=== PATIENT | female | born 1990 | race African-American/Black ===

== ENCOUNTER 2016-08-17 20:25 | Emergency (ER) | payer OTHER ==
[2016-08-17] MEDS ORDERED: IBUPROFEN 800 MG TABLET PO ONE (21:03)
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
[2016-08-17 21:32] LABS: ABSOLUTE BASOPHILS # (AUTO) 0.1 10^3/uL (0.0-0.2); ABSOLUTE LYMPHOCYTES (AUTO) 1.9 10^3/uL (0.5-4.7); ABSOLUTE MONOCYTES (AUTO) 0.4 10^3/uL (0.1-1.4); ABSOLUTE NEUT (AUTO) 2.7 10^3/uL (1.7-8.2); EOSINOPHILS % (AUTO) 0.9 % (0-6); HEMATOCRIT 42.4 % (36.0-47.0); HGB HCT DIFFERENCE -0.4; LYMPHOCYTES % (AUTO) 37.5 % (13-45); MEAN CORPUSCULAR HEMOGLOBIN 29.6 pg (27.0-33.4); MEAN CORPUSCULAR HGB CONC 32.9 g/dL (32.0-36.0); MEAN CORPUSCULAR VOLUME 90 fl (80-97); MONOCYTES % (AUTO) 8.5 % (3-13); RED BLOOD COUNT 4.73 10^6/uL (3.72-5.28); RED CELL DISTRIBUTION WIDTH 13.3 % (11.5-14.0); SEGMENTED NEUTROPHILS % (AUTO) 52.1 % (42-78); WHITE BLOOD COUNT 5.1 10^3/uL (4.0-10.5)
[2016-08-17 21:46] LABS: ALANINE AMINOTRANSFERASE 47 U/L (9-52); ALBUMIN 4.3 g/dL (3.5-5.0); ALKALINE PHOSPHATASE 47 U/L (38-126); ANION GAP 10 (5-19); ASPARTATE AMINO TRANSFERASE 26 U/L (14-36); BILIRUBIN,TOTAL 1.4 mg/dL (0.2-1.3); BLOOD UREA NITROGEN 13 mg/dL (7-20); CALCIUM 9.6 mg/dL (8.4-10.2); CARBON DIOXIDE 27 mmol/L (22-30); CHLORIDE 102 mmol/L (98-107); CREATININE RESULT 0.75 mg/dL (0.52-1.25); GLUCOSE 84 mg/dL (75-110); POTASSIUM 4.2 mmol/L (3.6-5.0); SODIUM 139.4 mmol/L (137-145); TOTAL PROTEIN 7.1 g/dL (6.3-8.2)
[2016-08-17 22:03] LABS: APPEARANCE,URINE CLEAR; BILIRUBIN,URINE NEGATIVE (NEGATIVE); GLUCOSE, URINE NEGATIVE (NEGATIVE); KETONES,URINE NEGATIVE (NEGATIVE); LEUKOCYTE ESTERASE,URINE SMALL (NEGATIVE); NITRITE,URINE NEGATIVE (NEGATIVE); PROTEIN,URINE NEGATIVE (NEGATIVE); URINE SPECIFIC GRAVITY 1.016; UROBILINOGEN,URINE NEGATIVE mg/dL (<2.0)
[2016-08-17 22:38] VITALS: BP 128/73
--- NOTE | 2016-08-18 08:26 | EKG REPORT ---
SEVERITY:- NORMAL ECG - SINUS RHYTHM : Confirmed by: Guicho Preciado 18-Aug-2016 08:25:48
== END 2016-08-17 22:40 | disposition home or self-care (01) ==
LOC: ER 20:25
DX: R20.9 Unspecified disturbances of skin sensation (principal); R03.0 Elevated blood-pressure reading, without diagnosis of hypertension; R42 Dizziness and giddiness; R51 Headache
CPT/HCPCS: 36415; 80053; 81001; 84703; 85025; 93005; 93010; 99284

== ENCOUNTER 2017-11-18 17:34 | Emergency (ER) | payer OTHER ==
[2017-11-18] MEDS ORDERED: METHYLPREDNISOLONE 4 MG TABLET PO ONE (19:38)
[2017-11-18] MEDS ORDERED: FAMOTIDINE 20 MG TABLET PO ONE (19:38)
--- NOTE | 2017-11-18 19:50 | ER Document Report ---
HPI - HPI Patient complains to provider of: Skin rash Onset/Duration: Persistent Pain Level: 1 Context: Patient states she recently used a hair chemical 2 weeks ago and had an allergic reaction. Patient states that she still has a rash to the ears and around her hairline. Patient states that she developed a rash to the circumoral area 2 days ago and states that this incidentally followed having oral sex with a female partner. Patient is concerned that she may have herpes. Patient states that she initially was seen after the allergic reaction and given a dose of prednisone. Patient states that she had worsening pruritus after taking the prednisone and so stopped the medication. Patient is concerned that she may be allergic to prednisone. Associated Symptoms: Other - Facial rash. denies: Fever Exacerbated by: Denies Relieved by: Denies Similar symptoms previously: No Recently seen / treated by doctor: Yes - ROS ROS below otherwise negative: Yes Systems Reviewed and Negative: Yes All other systems reviewed and negative - CONSTITUTIONAL Constitutional: DENIES: Fever - EENT EENT: DENIES: Sore Throat - NEURO Neurology: DENIES: Headache - RESPIRATORY Respiratory: DENIES: Coughing - GASTROINTESTINAL Gastrointestinal: DENIES: Nausea - DERM Skin Color: Normal Skin Problems: Rash Past Medical History - General Information source: Patient - Social History Smoking Status: Current Some Day Smoker Smoking Education Provided: Yes Frequency of alcohol use: Occasional Drug Abuse: None Occupation: none Lives with: Family Family History: Reviewed & Not Pertinent Patient has suicidal ideation: No Patient has homicidal ideation: No - Medical History Medical History: Negative Renal/ Medical History: Denies: Hx Peritoneal Dialysis Psychiatric Medical History: Reports: Hx Attention Deficit Hyperactivity Disorder Past Surgical History: Reports: Hx Breast Surgery - reduction Vertical Provider Document - CONSTITUTIONAL Agree With Documented VS: Yes Exam Limitations: No Limitations General Appearance: WD/WN, No Apparent Distress - INFECTION CONTROL TRAVEL OUTSIDE OF THE [place] IN LAST 30 DAYS: No - HEENT HEENT: Atraumatic, Normal ENT Exam, Normocephalic - NECK Neck: Normal Inspection, Supple - RESPIRATORY Respiratory: Breath Sounds Normal, No Respiratory Distress - CARDIOVASCULAR Cardiovascular: Regular Rate, Regular Rhythm - MUSCULOSKELETAL/EXTREMETIES Musculoskeletal/Extremeties: MAEW - NEURO Level of Consciousness: Awake, Alert, Appropriate Motor/Sensory: No Motor Deficit - DERM Integumentary: Warm, Dry, Rash - Dry flaking skin circumorally, to bilateral upper eyelids and around hairline Course - Re-evaluation Re-evalutation: 11/18/17 19:[address] Wolf regarding patient presentation and her reported history of a reaction to taking prednisone, recommends giving Depo-Medrol observing patient and as long she does not have any allergic reaction discharging home with the steroid. States pt may be discharged without observation period if she chooses. 11/18/17 20:01 pt advised that we may have to wait to receive the medication from the nursing hearing aid assembly supervisor as we currently do not have this particular medication here in the emergency department. Patient prefers to get the prescription filled and take at home. Patient states that she will return if she has any adverse symptoms or signs of allergic reaction. 11/18/17 20:05 - Vital Signs Vital signs: Temp Pulse Resp BP Pulse Ox 98.1 F 73 18 141/83 H 100 11/18/17 17:41 11/18/17 17:41 11/18/17 17:41 11/18/17 17:41 11/18/17 17:41 Discharge - Discharge Clinical Impression: Facial rash Condition: Stable Disposition: HOME, SELF-CARE Instructions: Contact Dermatitis ([facility]), Antihistamines ([facility]), Stock Preparation Supervisor, Steroid Medication Additional Instructions: Return immediately for any new or worsening symptoms Followup with your primary care provider, call tomorrow to make a followup appointment Prescriptions: Famotidine [Pepcid 20 mg Tablet] 20 mg PO BID #12 tablet Hydroxyzine HCl [Atarax 25 mg Tablet] 1 - 2 tab PO QID #16 tablet Methylprednisolone [Medrol Dosepack (4 mg/Tab) 21 Tab/Dosepak] 4 mg PO ASDIR PRN #21 tab.ds.pk PRN Reason: Forms: Smoking Cessation Education Referrals: MEGA NEGRON DO [ACTIVE STAFF] - Follow up as needed
[2017-11-18 20:10] VITALS: BP 122/79
== END 2017-11-18 20:10 | disposition home or self-care (01) ==
LOC: ER 17:34
DX: R21 Rash and other nonspecific skin eruption (principal); F17.200 Nicotine dependence, unspecified, uncomplicated
CPT/HCPCS: 99282

== ENCOUNTER 2017-11-23 23:25 | Emergency (ER) | payer OTHER ==
--- NOTE | 2017-11-23 23:53 | ER Document Report ---
ED GI/ - General Chief Complaint: Lower Abdominal Pain Stated Complaint: PELVIC PAIN Time Seen by Provider: 11/23/17 23:53 Mode of Arrival: Ambulatory Information source: Patient Notes: 27-year-old female is complaining of pelvic pain for a week with a vaginal discharge with an odor, urinary frequency. She does have some vaginal irritation. She had a new female sexual partner about 10 days ago sex toys were used intravaginal with oral sex. She also states that there is a male in another room and does not know if this female sex partner had sex with the male. She has a history of PID years ago that was treated. No fever or chills. Sex with male last month. G0. Menses late. TRAVEL OUTSIDE OF THE [place] IN LAST 30 DAYS: No - Related Data Allergies/Adverse Reactions: Sulfa (Sulfonamide Antibiotics) Allergy (Verified 11/18/17 17:36) Past Medical History - General Information source: Patient - Social History Smoking Status: Current Every Day Smoker Frequency of alcohol use: None Drug Abuse: None Lives with: Family Family History: Reviewed & Not Pertinent Renal/ Medical History: Denies: Hx Peritoneal Dialysis Psychiatric Medical History: Reports: Hx Attention Deficit Hyperactivity Disorder Past Surgical History: Reports: Hx Breast Surgery - reduction Review of Systems - Review of Systems Constitutional: No symptoms reported EENT: No symptoms reported Cardiovascular: No symptoms reported Respiratory: No symptoms reported Gastrointestinal: No symptoms reported Genitourinary: No symptoms reported Female Genitourinary: See HPI Musculoskeletal: No symptoms reported Skin: No symptoms reported Hematologic/Lymphatic: No symptoms reported Neurological/Psychological: No symptoms reported Physical Exam - Vital signs Vitals: Temp Pulse Resp BP Pulse Ox 98.1 F 70 16 125/71 99 11/23/17 23:40 11/23/17 23:40 11/23/17 23:40 11/23/17 23:40 11/23/17 23:40 Interpretation: Normal - General General appearance: Appears well, Alert In distress: None Notes: obese - HEENT Head: Normocephalic, Atraumatic Eyes: Normal Conjunctiva: Normal Pupils: PERRL Neck: Supple. No: Lymphadenopathy - Respiratory Respiratory status: No respiratory distress Chest status: Nontender Breath sounds: Normal Chest palpation: Normal - Cardiovascular Rhythm: Regular Heart sounds: Normal auscultation Murmur: No - Abdominal Inspection: Normal Distension: No distension Bowel sounds: Normal Tenderness: Tender - pelvis Organomegaly: No organomegaly - Genitourinary External exam: Normal Speculum exam: Cervix closed, Vaginal discharge. No: Lesions Bimanuel exam: Cervical motion tender - Yellow - Back Back: Normal, Nontender. No: CVA tenderness - Extremities General upper extremity: Normal inspection, Nontender, Normal color, Normal ROM , Normal temperature General lower extremity: Normal inspection, Nontender, Normal color, Normal ROM , Normal temperature, Normal weight bearing. No: Radha's sign - Neurological Neuro grossly intact: Yes Cognition: Normal Orientation: AAOx4 [place] Coma Scale Eye Opening: Spontaneous [place] Coma Scale Verbal: Oriented [place] Coma Scale Motor: Obeys Commands [place] Coma Scale Total: 15 Speech: Normal Motor strength normal: LUE, RUE, LLE, RLE Sensory: Normal - Psychological Associated symptoms: Normal affect, Normal mood - Skin Skin Temperature: Warm Skin Moisture: Dry Skin Color: Normal Course - Re-evaluation Re-evalutation: 11/24/17 00:54 Urinalysis shows 4 WBCs 1 RBC trace of bacteria, urine culture is pending. CBC is normal. Chemistry is normal except for mildly elevated total bilirubin of 1.5. Wet prep shows 4+ bacteria 4+ epithelials and 4+ white blood cells, suspect bacterial vaginosis because of the odor that the patient states she had it. No trichomonas. test is negative. She is concerned about the amount of pelvic pain so I am sending her for ultrasound because the pelvic pain is right worse than left. 11/24/17 01:13 Left ovary is normal, right ovary is partially obscured by bowel gas.. No acute findings on ultrasound. 11/24/17 02:07 - Vital Signs Vital signs: Temp Pulse Resp BP Pulse Ox 98.1 F 70 16 125/71 99 11/23/17 23:40 11/23/17 23:40 11/23/17 23:40 11/23/17 23:40 11/23/17 23:40 - Laboratory Result Diagrams: 11/24/17 00:17 11/24/17 00:17 Laboratory results interpreted by me: 11/24/17 11/24/17 00:17 00:17 Total Bilirubin 1.5 H Urine Urobilinogen 4.0 H Ur Leukocyte Esterase MODERATE H Discharge - Discharge Clinical Impression: Bacterial vaginosis, Pelvic pain Condition: Good Disposition: HOME, SELF-CARE Instructions: Pelvic Pain ([facility]), Vaginosis, Bacterial ([facility]), Metronidazole ([facility] ), Acetaminophen, Use of [id number]-Uwliscq Ibuprofen ([facility]), Rocephin ([facility]), Azithromycin ([facility]) Additional Instructions: call me in several hours for the std culture results to er if worse finish the flagyl no alcohol when you take that medication Prescriptions: Ibuprofen [Motrin 800 mg Tablet] 800 mg PO Q8HP PRN #30 tablet PRN Reason: Metronidazole [Flagyl 500 mg Tablet] 500 mg PO BID #14 tablet
[2017-11-24 00:27] LABS: ABSOLUTE BASOPHILS # (AUTO) 0.1 10^3/uL (0.0-0.2); ABSOLUTE LYMPHOCYTES (AUTO) 2.4 10^3/uL (0.5-4.7); ABSOLUTE MONOCYTES (AUTO) 0.7 10^3/uL (0.1-1.4); ABSOLUTE NEUT (AUTO) 4.3 10^3/uL (1.7-8.2); BASOPHILS % (AUTO) 1.1 % (0-2); EOSINOPHILS % (AUTO) 0.6 % (0-6); HEMATOCRIT 45.4 % (36.0-47.0); HEMOGLOBIN 15.4 g/dL (12.0-15.5); MEAN CORPUSCULAR HEMOGLOBIN 30.7 pg (27.0-33.4); MEAN CORPUSCULAR HGB CONC 33.8 g/dL (32.0-36.0); MEAN CORPUSCULAR VOLUME 91 fl (80-97); MONOCYTES % (AUTO) 8.8 % (3-13); PLATELET COUNT 209 10^3/uL (150-450); RED BLOOD COUNT 5.01 10^6/uL (3.72-5.28); RED CELL DISTRIBUTION WIDTH 13.2 % (11.5-14.0); SEGMENTED NEUTROPHILS % (AUTO) 57.5 % (42-78); TOTAL CELLS COUNTED % (AUTO) 100 %; WHITE BLOOD COUNT 7.4 10^3/uL (4.0-10.5)
[2017-11-24 00:40] LABS: APPEARANCE,URINE CLEAR; BILIRUBIN,URINE NEGATIVE (NEGATIVE); COLOR,URINE YELLOW; GLUCOSE, URINE NEGATIVE (NEGATIVE); KETONES,URINE NEGATIVE (NEGATIVE); LEUKOCYTE ESTERASE,URINE MODERATE (NEGATIVE); NITRITE,URINE NEGATIVE (NEGATIVE); PROTEIN,URINE NEGATIVE (NEGATIVE); URINE SPECIFIC GRAVITY 1.026
[2017-11-24 00:44] LABS: ALANINE AMINOTRANSFERASE 40 U/L (9-52); ALBUMIN 4.4 g/dL (3.5-5.0); ALKALINE PHOSPHATASE 61 U/L (38-126); ANION GAP 11 (5-19); ASPARTATE AMINO TRANSFERASE 19 U/L (14-36); BILIRUBIN,DIRECT 0.2 mg/dL (0.0-0.4); BILIRUBIN,TOTAL 1.5 mg/dL (0.2-1.3); BLOOD UREA NITROGEN 18 mg/dL (7-20); CALCIUM 9.7 mg/dL (8.4-10.2); CARBON DIOXIDE 29 mmol/L (22-30); CHLORIDE 101 mmol/L (98-107); GLUCOSE 85 mg/dL (75-110); POTASSIUM 4.4 mmol/L (3.6-5.0); SODIUM 141.4 mmol/L (137-145)
[2017-11-24 00:47] LABS: BACTERIA (WET MOUNT) 4+ BACTERIA SEEN; EPITHELIALS (WET MOUNT) 4+ EPITHELIALS SEEN; RBCS (WET MOUNT) RARE RBCS SEEN; T.VAGINALIS (WET MOUNT) NO TRICHOMONAS SEEN; WBCS (WET MOUNT) 4+ WBCS SEEN; YEAST (WET MOUNT) NO YEAST SEEN
[2017-11-24] MEDS ORDERED: CEFTRIAXONE INJ 250 MG VIAL IM ONE (01:05)
[2017-11-24] MEDS ORDERED: ONDANSETRON 4 MG TAB.RAPDIS PO ONE (01:05)
[2017-11-24] MEDS ORDERED: AZITHROMYCIN 250 MG TABLET PO ONE (01:05)
[2017-11-24] MEDS ORDERED: METRONIDAZOLE 500 MG TABLET PO ONE (01:07)
[2017-11-24] MEDS ORDERED: IBUPROFEN 800 MG TABLET PO ONE (01:13)
[2017-11-24] MEDS ORDERED: ACETAMINOPHEN 325 MG TABLET PO ONE (01:13)
--- NOTE | 2017-11-24 01:59 | RADIOLOGY REPORT (SQ) ---
EXAM DESCRIPTION: U/S OB TRANSVAG W/DOPPLER CLINICAL HISTORY: 27 years, Female, pelvic pain, r more l , not COMPARISON: None. LIMITATIONS: Partial bowel obscuration of the right ovarian fossa. FINDINGS: 7.7 cm uterus, 1.1 cm thick endometrial stripe, 2.5 cm cervical length, and 3.6 cm left ovary appear normal size, shape, echotexture, and vascularity. 3.5 cm right ovary partially visualized due to bowel artifact. No significant free fluid. IMPRESSION: Normal pelvic sonogram. Limitation.
[2017-11-24 02:10] VITALS: BP 126/76
[2017-11-24 02:11] LABS: CHLAM PCR NOT DETECTED (NOT DETECT); GON PCR NOT DETECTED (NOT DETECT)
== END 2017-11-24 02:10 | disposition home or self-care (01) ==
LOC: ER 23:25
DX: N76.0 Acute vaginitis (principal); B96.89 Other specified bacterial agents as the cause of diseases classified elsewhere; R10.2 Pelvic and perineal pain; R10.30 Lower abdominal pain, unspecified; R35.0 Frequency of micturition; F17.200 Nicotine dependence, unspecified, uncomplicated
CPT/HCPCS: 99284; 96372; 36415; 87086; 87210; 84703; 85025; 80053; 81001; 87491; 87591; 76817; 93976; S0119; J0696

== ENCOUNTER 2017-12-05 18:33 | Emergency (ER) | payer OTHER ==
--- NOTE | 2017-12-05 19:26 | ER Document Report ---
ED Medical Screen (RME) - General Chief Complaint: Pelvic Pain Stated Complaint: ABDOMINAL PAIN Time Seen by Provider: 12/05/17 19:02 Mode of Arrival: Ambulatory Information source: Patient Notes: 27-year-old female who has been seen by urgent care and her primary care physician for the past 2 days with complaints of left lower quadrant pain presents with continued pain. Patient unsure if she is , notes she passed something in the toilet today and the cramping is worsened since I have greeted and performed a rapid initial assessment of this patient. A comprehensive ED assessment and evaluation of the patient, analysis of test results and completion of the medical decision making process will be conducted by additional ED providers. PHYSICAL EXAMINATION: GENERAL: Well-appearing, well-nourished and in no acute distress. HEAD: Atraumatic, normocephalic. EYES: Pupils equal round extraocular movements intact, conjunctiva are normal. ENT: Nares patent NECK: Normal range of motion LUNGS: No respiratory distress Musculoskeletal: Normal range of motion NEUROLOGICAL: Normal speech, normal gait. PSYCH: Normal mood, normal affect. SKIN: Warm, Dry, normal turgor, no rashes or lesions noted. TRAVEL OUTSIDE OF THE [place] IN LAST 30 DAYS: No - Related Data Allergies/Adverse Reactions: Sulfa (Sulfonamide Antibiotics) Allergy (Verified 12/05/17 18:35) Past Medical History - General Last Menstrual Period: 09/04 - Social History Chew tobacco use (# tins/day): No Frequency of alcohol use: None Drug Abuse: None Renal/ Medical History: Denies: Hx Peritoneal Dialysis Psychiatric Medical History: Reports: Hx Attention Deficit Hyperactivity Disorder Past Surgical History: Reports: Hx Breast Surgery - reduction Physical Exam - Vital signs Vitals: Temp Pulse Resp BP Pulse Ox 98.2 F 68 18 135/81 H 100 12/05/17 18:40 12/05/17 18:40 12/05/17 18:40 12/05/17 18:40 12/05/17 18:40 Course - Vital Signs Vital signs: Temp Pulse Resp BP Pulse Ox 98.2 F 68 18 135/81 H 100 12/05/17 18:40 12/05/17 18:40 12/05/17 18:40 12/05/17 18:40 12/05/17 18:40
--- NOTE | 2017-12-05 20:24 | RADIOLOGY REPORT (SQ) ---
EXAM DESCRIPTION: U/S NON OB PEL TV W/DOPPLER COMPLETED DATE/TIME: 12/05/2017 8:09 pm REASON FOR STUDY: pelvic pain COMPARISON: 08/27/2015 TECHNIQUE: Dynamic and static grayscale images acquired of the pelvis via transvaginal approach and recorded on PACS. Additional selected color Doppler and spectral images recorded. LIMITATIONS: None. FINDINGS: UTERUS: Contour normal. No mass. ENDOMETRIAL STRIPE: No focal or generalized thickening. No masses. CERVIX: No nabothian cysts. RIGHT ADNEXUM: No abnormal masses. RIGHT OVARY AND DOPPLER: Normal size. No worrisome masses. Normal arterial vascular flow without leighton dence for torsion. LEFT ADNEXUM: No abnormal masses. LEFT OVARY AND DOPPLER: Normal size. No worrisome masses. Normal arterial vascular flow without evide nce for torsion. FREE FLUID: None noted. OTHER: No other significant finding. MEASUREMENTS: UTERUS: 7.5 X 4.5 X 4.1 CM. ENDOMETRIAL STRIPE: 8.8 MM. RIGHT OVARY: 3.8 X 3.2 X 3.1 CM. LEFT OVARY: 3.8 X 1.5 X 1.5 CM. IMPRESSION: NORMAL TRANSVAGINAL PELVIC ULTRASOUND. TECHNICAL DOCUMENTATION: JOB ID: [id number] [employer]- All Rights Reserved Reading location - IP/workstation name: [email or web address]
--- NOTE | 2017-12-05 20:24 | ER Document Report ---
ED General - General Mode of Arrival: Ambulatory Information source: Patient TRAVEL OUTSIDE OF THE [place] IN LAST 30 DAYS: No <LAY ORDONEZ - Last Filed: 12/05/17 22:56> <VICKY DICKENS - Last Filed: 12/06/17 01:32> - General Chief Complaint: Pelvic Pain Stated Complaint: ABDOMINAL PAIN Time Seen by Provider: 12/05/17 19:02 Notes: 27 y.o female with a PMHx of endometriosis presents to the ED with abd pain that has been consistent but states that she used the restroom and "passed some tissue" after urinating today. Pt states that her pain is always on her left side and denies any relief from Ibuprofen. Pt reports nausea and one episode of vomiting yesterday. She denies any pain to her back, fever, diarrhea or constipation. She denies straining when the tissue passed. She denies any concern for STDs or recent surgeries. Pt reports taking Phentermine regularly. Pt reports a Salpingiogram in the past. She reports going to the Urgent Care yesterday for her pain and was without any results. She denies seeing an OBGYN recently or ever having a Laparoscopy. Pt had a test and Ultrasound done on November 24 and was not . (LAY ORDONEZ) - Related Data Allergies/Adverse Reactions: Sulfa (Sulfonamide Antibiotics) Allergy (Verified 12/05/17 18:35) Past Medical History - General Information source: Patient Last Menstrual Period: 09/04 - Social History Smoking Status: Never Smoker Chew tobacco use (# tins/day): No Frequency of alcohol use: None Drug Abuse: None Family History: Reviewed & Not Pertinent Patient has suicidal ideation: No Patient has homicidal ideation: No Renal/ Medical History: Denies: Hx Peritoneal Dialysis Psychiatric Medical History: Reports: Hx Attention Deficit Hyperactivity Disorder Past Surgical History: Reports: Hx Breast Surgery - reduction <LAY ORDONEZ - Last Filed: 12/05/17 22:56> Review of Systems - Review of Systems Constitutional: See HPI, Fever EENT: No symptoms reported Cardiovascular: No symptoms reported Respiratory: No symptoms reported Gastrointestinal: See HPI, Abdominal pain - Prominently to her LT side, Nausea, Vomiting. denies: Diarrhea, Constipation Genitourinary: No symptoms reported Female Genitourinary: See HPI, Other - "passed tissue" Musculoskeletal: See HPI. denies: Back pain Skin: No symptoms reported Hematologic/Lymphatic: No symptoms reported Neurological/Psychological: No symptoms reported -: Yes All other systems reviewed and negative <LAY ORDONEZ - Last Filed: 12/05/17 22:56> Physical Exam <LAY ORDONEZ - Last Filed: 12/05/17 22:56> <VICKY DICKENS - Last Filed: 12/06/17 01:32> - Vital signs Vitals: Temp Pulse Resp BP Pulse Ox 98.2 F 68 18 135/81 H 100 12/05/17 18:40 12/05/17 18:40 12/05/17 18:40 12/05/17 18:40 12/05/17 18:40 - Notes Notes: PHYSICAL EXAM GENERAL: Alert, interacts well. Appears uncomfortable and frustrated. No acute distress. HEAD: Normocephalic, atraumatic. EYES: Pupils equal, round, and reactive to light. Extraocular movements intact. ENT: Oral mucosa moist, tongue midline. NECK: Full range of motion. Supple. Trachea midline. LUNGS: Clear to auscultation bilaterally, no wheezes, rales, or rhonchi. No respiratory distress. HEART: Regular rate and rhythm. No murmurs, gallops, or rubs. ABDOMEN: Soft. Non-distended. Bowel sounds present in all 4 quadrants. LT pelvis tenderenss to palpation. No guarding, rebound, or rigidity. EXTREMITIES: Moves all 4 extremities spontaneously. No edema, radial and dorsalis pedis pulses 2/4 bilaterally. No cyanosis. NEUROLOGICAL: Alert and oriented x3. Normal speech. PSYCH: Normal affect, normal mood. SKIN: Warm, dry, normal turgor. No rashes or lesions noted. (LAY ORDONEZ) Course - Laboratory Result Diagrams: 12/05/17 22:02 12/05/17 22:02 <LAY ORDONEZ - Last Filed: 12/05/17 22:56> - Laboratory Result Diagrams: 12/05/17 22:02 12/05/17 22:02 - Diagnostic Test Radiology reviewed: Reports reviewed <VICKY DICKENS - Last Filed: 04/28/18 01:32> - Re-evaluation Re-evalutation: Patient is a 27-year-old female who comes in with left lower pelvic pain. Patient has been seen by her primary care doctor in urgent care. No acute findings on transvaginal ultrasound with Doppler. Blood work and urine within normal limits. Patient is not . Patient denies any nausea vomiting diarrhea or any other abdominal pain. She was recently checked for STDs. Patient is requesting to be discharged home and is feeling better after Bentyl. She is instructed to follow-up with [facility]. Return if any worsening or concerning symptoms. Understands and agrees with this plan. Grateful for care. (VICKY DICKENS) - Vital Signs Vital signs: Temp Pulse Resp BP Pulse Ox 98.6 F 68 18 125/76 100 12/06/17 00:06 12/06/17 00:06 12/06/17 00:06 12/06/17 00:06 12/06/17 00:06 - Laboratory Laboratory results interpreted by me: 12/05/17 12/05/17 22:02 22:02 Seg Neutrophils % 39.0 L Lymphocytes % 51.0 H Total Bilirubin 2.1 H Discharge <LAY ORDONEZ - Last Filed: 12/05/17 22:56> <VICKY DICKENS - Last Filed: 12/06/17 01:32> - Discharge Clinical Impression: Pelvic pain Condition: Stable Disposition: HOME, SELF-CARE Instructions: Pelvic Pain ([facility]) Additional Instructions: Please follow-up with [facility] within the next few weeks. Please call for appointment. Prescriptions: Dicyclomine HCl [Bentyl 20 mg Tablet] 20 mg PO TIDP PRN #40 tablet PRN Reason: Referrals: [facility] [Provider Group] - Follow up as needed Scribe Attestation: 12/06/17 01:31 I personally performed the services described in the documentation, reviewed and edited the documentation which was dictated to the scribe in my presence, and it accurately records my words and actions. (VICKY DICKENS) Scribe Documentation - Scribe Written by Arcadio:: Arcadio Black [id number] 12/05/2017 acting as scribe for :: Rahul <LAY ORDONEZ - Last Filed: 12/05/17 22:56>
[2017-12-05] MEDS ORDERED: DICYCLOMINE HCL 20 MG TABLET PO ONE (21:18)
[2017-12-05 22:12] LABS: ABSOLUTE EOSINOPHILS # (AUTO) 0.1 10^3/uL (0.0-0.6); ABSOLUTE LYMPHOCYTES (AUTO) 2.7 10^3/uL (0.5-4.7); ABSOLUTE MONOCYTES (AUTO) 0.4 10^3/uL (0.1-1.4); BASOPHILS % (AUTO) 0.8 % (0-2); EOSINOPHILS % (AUTO) 1.6 % (0-6); HEMATOCRIT 40.7 % (36.0-47.0); MEAN CORPUSCULAR HGB CONC 34.3 g/dL (32.0-36.0); MEAN CORPUSCULAR VOLUME 90 fl (80-97); MONOCYTES % (AUTO) 7.6 % (3-13); PLATELET COUNT 166 10^3/uL (150-450); TOTAL CELLS COUNTED % (AUTO) 100 %; WHITE BLOOD COUNT 5.2 10^3/uL (4.0-10.5)
[2017-12-05 22:24] LABS: ALANINE AMINOTRANSFERASE 23 U/L (9-52); ALKALINE PHOSPHATASE 45 U/L (38-126); ANION GAP 8 (5-19); ASPARTATE AMINO TRANSFERASE 17 U/L (14-36); BILIRUBIN,DIRECT 0.1 mg/dL (0.0-0.4); BILIRUBIN,TOTAL 2.1 mg/dL (0.2-1.3); BLOOD UREA NITROGEN 18 mg/dL (7-20); CALCIUM 9.5 mg/dL (8.4-10.2); CARBON DIOXIDE 26 mmol/L (22-30); CHLORIDE 105 mmol/L (98-107); GLUCOSE 86 mg/dL (75-110); POTASSIUM 3.9 mmol/L (3.6-5.0); SODIUM 138.8 mmol/L (137-145)
[2017-12-06 00:06] LABS: APPEARANCE,URINE CLEAR; BILIRUBIN,URINE NEGATIVE (NEGATIVE); COLOR,URINE YELLOW; GLUCOSE, URINE NEGATIVE (NEGATIVE); KETONES,URINE NEGATIVE (NEGATIVE); LEUKOCYTE ESTERASE,URINE NEGATIVE (NEGATIVE); NITRITE,URINE NEGATIVE (NEGATIVE); PROTEIN,URINE NEGATIVE (NEGATIVE); URINE SPECIFIC GRAVITY 1.019; UROBILINOGEN,URINE NEGATIVE mg/dL (<2.0)
[2017-12-06 00:07] VITALS: BP 125/76
== END 2017-12-06 00:08 | disposition home or self-care (01) ==
LOC: ER 18:33
DX: R10.2 Pelvic and perineal pain (principal); R10.30 Lower abdominal pain, unspecified; R11.2 Nausea with vomiting, unspecified; Z88.2 Allergy status to sulfonamides
CPT/HCPCS: 99284; 36415; 84702; 85025; 80053; 81001; 76830; 93976; J3490